=== PATIENT | female | born 1995 ===

== ENCOUNTER 2017-03-06 19:59 | Emergency (ER) | payer OTHER ==
[2017-03-06 20:33] VITALS: TEMP 98.2; O2SAT 100
[2017-03-06 21:46] LABS: BENZODIAZEPINES, UR NEGATIVE (NEGATIVE)
[2017-03-06 21:47] LABS: BARBITURATES, UR NEGATIVE (NEGATIVE)
[2017-03-06 21:50] LABS: OPIATES, UR POSITIVE (NEGATIVE); PHENCYCLIDINE, UR NEGATIVE (NEGATIVE)
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
[2017-03-07] MEDS ORDERED: Sodium Chloride 0.9% 1,000 ML IV ONE (00:33)
[2017-03-07 00:34] VITALS: BP 114/82; PULSE 88; RESP 18
[2017-03-07 00:46] LABS: BASO # 0.1 K/uL (0.0-0.2); BASO % 0.5 % (0.0-2.0); EOS % 0.1 % (0.0-4.0); LYMPH # 1.9 K/uL (1.0-4.3); LYMPH % 15.2 % (20.0-40.0); MEAN CELL VOLUME 78.5 fL (81.0-99.0); MEAN CORPUSCULAR HEMOGLOBIN 25.4 pg (27.0-31.0); MEAN CORPUSCULAR HGB CONC 32.4 g/dL (33.0-37.0); MEAN PLATELET VOLUME 9.8 fL (7.2-11.7); MONO # 0.4 K/uL (0.0-0.8); MONO % 3.2 % (0.0-10.0); RBC 4.32 Mil/uL (3.80-5.20); RED CELL DISTRIBUTION WIDTH 13.8 % (11.5-14.5); WHITE BLOOD COUNT 12.3 K/uL (4.8-10.8)
[2017-03-07 01:18] LABS: BLOOD UREA NITROGEN 9 mg/dL (7-17); GFR AFRICAN-AMERICAN > 60; GFR NON-AFRICAN AMERICAN > 60
[2017-03-07 01:19] LABS: CALCIUM 8.8 mg/dl (8.6-10.4)
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
--- NOTE | 2017-03-07 09:03 | RAD ---
PROCEDURE: Cervical Spine Radiographs. HISTORY: Pain. COMPARISON: None. FINDINGS: BONES: Mild straightening of the normal lordosis is noted. No fracture. Dens Intact. DISC SPACES: Normal. SOFT TISSUES: Normal. No prevertebral soft tissue swelling. OTHER FINDINGS: None. IMPRESSION: Mild straightening of the normal lordosis is noted. No fracture subluxation appreciated
== END 2017-03-07 01:20 | disposition home or self-care (01) ==
LOC: C.ER 19:59
DX: S46.912A Strain of unspecified muscle, fascia and tendon at shoulder and upper arm level, left arm, initial encounter (principal); S76.011A Strain of muscle, fascia and tendon of right hip, initial encounter; S16.1XXA Strain of muscle, fascia and tendon at neck level, initial encounter; V43.62XA Car passenger injured in collision with other type car in traffic accident, initial encounter; Y92.410 Unspecified street and highway as the place of occurrence of the external cause

== ENCOUNTER 2017-06-05 14:55 | Emergency (ER) | payer OTHER ==
[2017-06-05] MEDS ORDERED: Sodium Chloride 0.9% 1,000 ML IV ONE (15:27)
[2017-06-05] MEDS ORDERED: Sodium Chloride 0.9% 1,000 ML ONE (15:35)
--- NOTE | 2017-06-05 15:49 | C.PDOC ---
History Of Present Illness 22 y/o female with Hx of kidney stones presents to ED with complaints of constant flank pain for 2 days and dysuria. Patient reports she had similar symptoms 6 months ago and was diagnosed with kidney stones. Patient denies hematuria, vaginal discharge, fever, vomiting or any other complaints at this time. Time Seen by Provider: 06/05/17 15:14 Chief Complaint (Nursing): Female Genitourinary History Per: Patient History/Exam Limitations: no limitations Onset/Duration Of Symptoms: Days Current Symptoms Are (Timing): Still Present Past Medical History Reviewed: Historical Data, Nursing Documentation, Vital Signs Vital Signs: Last Vital Signs Temp 98.7 F 06/05/17 18:35 Pulse 82 06/05/17 18:35 Resp 18 06/05/17 18:35 BP 116/76 06/05/17 18:35 Pulse Ox 98 06/05/17 18:35 - Medical History PMH: Asthma Surgical History: No Surg Hx Family History: States: No Known Family Hx - Social History Hx Tobacco Use: No Hx Alcohol Use: Yes Hx Substance Use: No - Immunization History Hx Tetanus Toxoid Vaccination: No Hx Influenza Vaccination: No Hx Pneumococcal Vaccination: No Review Of Systems Except As Marked, All Systems Reviewed And Found Negative. Genitourinary: Positive for: Dysuria Musculoskeletal: Positive for: Other (Flank pain) Physical Exam - Physical Exam Appears: Non-toxic, No Acute Distress, Other (Comfortable) Skin: Normal Color, Warm, Dry, No Rash Head: Normacephalic Eye(s): bilateral: Normal Inspection Oral Mucosa: Moist Neck: Normal ROM, Supple Chest: Symmetrical Cardiovascular: Rhythm Regular, No Murmur Respiratory: Normal Breath Sounds, No Rales, No Rhonchi, No Wheezing Gastrointestinal/Abdominal: Soft, No Tenderness, No Guarding, No Rebound, Other (obese abdomen) Back: CVA Tenderness (Left), No Paraspinal Tenderness Extremity: Normal ROM, Capillary Refill (<2 seconds) Neurological/Psych: Oriented x3 ED Course And Treatment - Laboratory Results Result Diagrams: 06/05/17 15:53 06/05/17 15:53 O2 Sat by Pulse Oximetry: 97 (RA) Pulse Ox Interpretation: Normal Progress Note: UA, Blood work, IV fluids, Toradol Disposition Counseled Patient/Family Regarding: Diagnosis, Need For Followup, Rx Given - Disposition Referrals: Delroy Riggins MD [Staff Provider] - [facility] [Outside] Disposition: HOME/ ROUTINE Disposition Time: 18:45 Condition: STABLE Additional Instructions: FOLLOW UP WITH UROLOGY WITHIN 1 WEEK DRINK PLENTY OF FLUIDS, AND USE MEDICATIONS DIRECTED RETURN TO ER IF SYMPTOMS WORSEN Prescriptions: Hydrocodone/Acetaminophen [Hydrocodon-Acetaminophen 5-325] 1 each PO Q6 PRN #15 tablet PRN Reason: Pain, Moderate (4-7) Tamsulosin [Flomax] 0.4 mg PO DAILY #5 cap Instructions: Kidney Stones (ED), Renal Colic (ED) Forms: [employer] ([place]ese) Print Language: TELUGU - Clinical Impression Clinical Impression: Renal colic, bilateral, Kidney stones - Scribe Statement The provider has reviewed the documentation as recorded by the Javidibalfred Stewart All medical record entries made by the Javidibalfred were at my direction and personally dictated by me. I have reviewed the chart and agree that the record accurately reflects my personal performance of the history, physical exam, medical decision making, and the department course for this patient. I have also personally directed, reviewed, and agree with the discharge instructions and disposition.
[2017-06-05 15:54] LABS: RBC URINE 15 /hpf (0-3); URINE BILIRUBIN NEGATIVE (NEGATIVE); URINE BLOOD 2+ (NEGATIVE); URINE COLOR Yellow (YELLOW); URINE GLUCOSE (UA) NORMAL (Normal); URINE KETONE NEGATIVE (NEGATIVE); URINE LEUKOCYTE ESTERASE 1+ Leu/uL (Negative); URINE PROTEIN NEGATIVE (NEGATIVE); URINE UROBILINOGEN NORMAL mg/dL (0.2-1.0); WBC URINE 7 /hpf (0-5)
[2017-06-05 15:57] LABS: BASO % 0.3 % (0.0-2.0); EOS % 0.3 % (0.0-4.0); HEMATOCRIT 36.7 % (34.0-47.0); LYMPH # 2.4 K/uL (1.0-4.3); LYMPH % 20.9 % (20.0-40.0); MEAN CELL VOLUME 79.2 fL (81.0-99.0); MEAN CORPUSCULAR HGB CONC 32.8 g/dL (33.0-37.0); MEAN PLATELET VOLUME 9.3 fL (7.2-11.7); MONO # 0.5 K/uL (0.0-0.8); MONO % 4.7 % (0.0-10.0); RED CELL DISTRIBUTION WIDTH 14.3 % (11.5-14.5); WHITE BLOOD COUNT 11.3 K/uL (4.8-10.8)
[2017-06-05 16:08] LABS: CHLORIDE 101 mmol/L (98-107); POTASSIUM 3.9 mmol/L (3.6-5.2); SODIUM 140 mmol/L (132-148)
[2017-06-05 16:11] LABS: ALB/GLOB RATIO 1.2 (1.0-2.1); ALKALINE PHOSPHATASE 100 U/L (38-126); AST/SGOT 27 U/L (14-36); BILIRUBIN,TOTAL 0.5 mg/dL (0.2-1.3); BLOOD UREA NITROGEN 9 mg/dL (7-17); CALCIUM 9.1 mg/dl (8.6-10.4); CARBON DIOXIDE 23 mmol/L (22-30); GFR AFRICAN-AMERICAN > 60; GLUCOSE,RANDOM 90 mg/dL (65-105); TOTAL PROTEIN 7.8 g/dL (6.3-8.3)
[2017-06-05 16:12] LABS: ALT/SGPT 27 U/L (9-52)
--- NOTE | 2017-06-05 18:34 | CT ---
PROCEDURE: CT Abdomen and Pelvis without intravenous or oral contrast HISTORY: left flank pain r/o kidney stone COMPARISON: None. TECHNIQUE: Technique Contiguous axial images of the abdomen and pelvis without intravenous or oral contrast. Radiation dose: Total exam DLP = 1093.77 mGy-cm. This CT exam was performed using one or more of the following dose reduction techniques: Automated exposure control, adjustment of the mA and/or kV according to patient size, and/or use of iterative reconstruction technique. FINDINGS: LOWER THORAX: Unremarkable. LIVER: Unremarkable. GALLBLADDER AND BILE DUCTS: Unremarkable. PANCREAS: Unremarkable. No ductal dilatation. SPLEEN: Unremarkable. No splenomegaly. ADRENALS: Unremarkable. KIDNEYS AND URETERS: Small. Nonobstructing calculi bilaterally none larger than 2.5 mm. BLADDER: Unremarkable. No calculus. REPRODUCTIVE: Unremarkable. APPENDIX: Unremarkable. Normal appendix. STOMACH AND BOWEL: Unremarkable. No obstruction. No gross mural thickening. PERITONEUM: Unremarkable. No significant fluid collection. No free air. LYMPH NODES: Unremarkable. No enlarged lymph nodes. VASCULATURE: Unremarkable. No aortic aneurysm. BONES: No acute fracture. OTHER FINDINGS: None . IMPRESSION: Nephrolithiasis bilaterally without evidence of obstructive uropathy or other pathologic process.
[2017-06-05 18:36] VITALS: BP 116/76; PULSE 82; RESP 18; TEMP 98.7
[2017-06-05] MEDS ORDERED: Hydrocodone/Acetaminophen 5 mg /300 mg Tab PO STA (18:37)
[2017-06-05 18:40] VITALS: O2SAT 97
[2017-06-05] MEDS ORDERED: Hydrocodone/Acetaminophen 5 mg /300 mg Tab PO ONE (18:41)
== END 2017-06-05 19:07 | disposition home or self-care (01) ==
LOC: C.ER 14:55
DX: N20.0 Calculus of kidney (principal); Z87.442 Personal history of urinary calculi
CPT/HCPCS: 74176; 80053; 81001; 84703; 85025; 96361; 96374; 99285; J1885; J7040

== ENCOUNTER 2017-12-04 02:42 | Emergency (ER) | payer SELFPAY ==
[2017-12-04] MEDS ORDERED: Sodium Chloride 0.9% 500 ML IV ONE (03:12)
[2017-12-04] MEDS ORDERED: Sodium Chloride 0.9% 1,000 ML ONE (03:18)
--- NOTE | 2017-12-04 03:25 | C.PDOC ---
History Of Present Illness 22 y/o female presents to ER with c/o of burning sensation to epigastric area x 1 day with assoc nausea, vomiting x 3. pt took otc zantac with no relief. Pt denies chest pain, SOB, fever, diarrhea or food association Time Seen by Provider: 12/04/17 02:54 Chief Complaint (Nursing): Abdominal Pain History Per: Patient History/Exam Limitations: no limitations Current Symptoms Are (Timing): Still Present Severity: Moderate Pain Scale Rating Of: 8 Location Of Pain/Discomfort: Epigastric Radiation Of Pain To:: None Quality Of Discomfort: Burning, Other (heartburn) Associated Symptoms: denies: Fever, Diarrhea, Loss Of Appetite, Constipation, Urinary Symptoms Alleviating Factors: None Recent travel outside of the [place]: Yes Past Medical History Vital Signs: Last Vital Signs Temp 97.3 F L 12/04/17 02:50 Pulse 85 12/04/17 03:52 Resp 18 12/04/17 03:52 BP 124/71 12/04/17 03:52 Pulse Ox 100 12/04/17 07:40 - Medical History PMH: Asthma, Gastritis Family History: States: Unknown Family Hx - Social History Hx Tobacco Use: No Hx Alcohol Use: No Hx Substance Use: No - Immunization History Hx Tetanus Toxoid Vaccination: No Hx Influenza Vaccination: No Hx Pneumococcal Vaccination: No Review Of Systems Constitutional: Negative for: Fever Cardiovascular: Negative for: Chest Pain, Palpitations, Light Headedness Respiratory: Negative for: Shortness of Breath, Pleuritic Pain Gastrointestinal: Positive for: Nausea, Vomiting, Abdominal Pain (epigastric). Negative for: Diarrhea, Constipation, Melena, Hematochezia Genitourinary: Negative for: Dysuria, Hematuria Neurological: Negative for: Weakness, Numbness Physical Exam - Physical Exam Appears: Well, Non-toxic, No Acute Distress, Other (obese) Skin: Normal Color Eye(s): bilateral: Normal Inspection, PERRL, EOMI Neck: Normal Cardiovascular: Rhythm Regular Respiratory: Normal Breath Sounds, No Wheezing Gastrointestinal/Abdominal: Normal Exam, Bowel Sounds, Soft, Tenderness (mild epigastric ), No Distention, No Guarding Back: Normal Inspection, No CVA Tenderness Neurological/Psych: Oriented x3, Normal Speech, Normal Cognition Gait: Steady ED Course And Treatment - Laboratory Results Result Diagrams: 12/04/17 03:37 12/04/17 03:37 O2 Sat by Pulse Oximetry: 100 Pulse Ox Interpretation: Normal - CT Scan/US Abdomen US Other Rad Studies (CT/US): Read By Radiologist, Radiology Report Reviewed CT/US Interpretation: IMPRESSION: Mildly distended gallbladder with minimal haziness of the pericholecystic fat. Recommend. correlation with laboratory values to exclude acute cholecystitis. Right upper quadrant. ultrasound could be obtained as clinically warranted. Mild nonspecific periportal edema commonly seen with fluid resuscitation. Clinical correlation. recommended. Progress Note: Labs, Pepcid, reglan IV ordered. On reeval pt c/o of persistent epigastric pain, maalox and viscous lidocaine ordered. Pt with recurrent vomiting and pain, IV zofran and Abd/pelvis CT ordered. CT inconclusive, poss acute beto, wbc 15-- pending RUQ US. pt's pain has improved Disposition - Disposition Disposition Time: 07:42 Condition: STABLE Forms: [facility] (Nepali) - Clinical Impression Clinical Impression: Abdominal pain Physician Patient Turnover Patient Signed Over To: Stephy Guerrero
[2017-12-04 03:39] LABS: BASO # 0.1 K/uL (0.0-0.2); BASO % 0.8 % (0.0-2.0); EOS # 0.1 K/uL (0.0-0.7); EOS % 0.6 % (0.0-4.0); HEMOGLOBIN 12.3 g/dL (11.0-16.0); LYMPH # 3.6 K/uL (1.0-4.3); LYMPH % 23.8 % (20.0-40.0); MEAN CELL VOLUME 80.2 fL (81.0-99.0); MEAN CORPUSCULAR HEMOGLOBIN 26.9 pg (27.0-31.0); MEAN CORPUSCULAR HGB CONC 33.6 g/dL (33.0-37.0); MONO % 6.5 % (0.0-10.0); NEUT # 10.4 K/uL (1.8-7.0); NEUT % 68.3 % (50.0-75.0); RBC 4.56 Mil/uL (3.80-5.20); RED CELL DISTRIBUTION WIDTH 14.2 % (11.5-14.5); WHITE BLOOD COUNT 15.2 K/uL (4.8-10.8)
[2017-12-04 03:40] LABS: HCG,QUALITATIVE URINE NEGATIVE (NEGATIVE)
[2017-12-04 03:46] LABS: SQUAMOUS EPITHIAL 6 /hpf (0-5); URINE AMORPHOUS SEDIMENT OCC /ul (<OCC); URINE BILIRUBIN NEGATIVE (NEGATIVE); URINE BLOOD NEGATIVE (NEGATIVE); URINE CLARITY Hazy (Clear); URINE COLOR Yellow (YELLOW); URINE GLUCOSE (UA) NORMAL (Normal); URINE LEUKOCYTE ESTERASE NEG Leu/uL (Negative); URINE PROTEIN NEGATIVE (NEGATIVE); URINE UROBILINOGEN NORMAL mg/dL (0.2-1.0)
[2017-12-04 03:54] LABS: ALBUMIN 3.9 g/dL (3.5-5.0); ALT/SGPT 53 U/L (9-52); AST/SGOT 133 U/L (14-36); BLOOD UREA NITROGEN 12 mg/dL (7-17); CALCIUM 8.5 mg/dl (8.6-10.4); GFR AFRICAN-AMERICAN > 60; GFR NON-AFRICAN AMERICAN > 60; LIPASE 70 U/L (23-300)
[2017-12-04] MEDS ORDERED: Alum-Mag Hydrox-Simethicone Susp (30 mL) PO STA (04:39)
[2017-12-04] MEDS ORDERED: Aluminum Hydroxide/Magnesium Hydroxide Susp (30 mL) PO STA ×2 (04:40→08:31)
[2017-12-04] MEDS ORDERED: Alum-Mag Hydrox-Simethicone Susp (30 mL) ONE (04:45)
[2017-12-04] MEDS ORDERED: Iohexol 350mg/ml 100 ML ONE (05:00)
--- NOTE | 2017-12-04 06:34 | CT ---
EXAM: CT Abdomen and Pelvis With Intravenous Contrast CLINICAL HISTORY: 22 years old, female; Pain; Abdominal pain; Patient HX: 06-05-17 images sent; Additional info: Abd pain , epigastric, periumbilical TECHNIQUE: Axial computed tomography images of the abdomen and pelvis with intravenous contrast. All CT scans at this facility use one or more dose reduction techniques, viz.: automated exposure control; ma/kV adjustment per patient size (including targeted exams where dose is matched to indication; i.e. head); or iterative reconstruction technique. Coronal and sagittal reformatted images were created and reviewed. CONTRAST: 100 mL of [id number] administered intravenously. COMPARISON: CT - ABD PELVIS W/O PO OR IV CONT 2017-06-05 17:51 FINDINGS: Lower thorax: No acute findings. ABDOMEN: Liver: Mild nonspecific periportal edema. No mass. Gallbladder and bile ducts: Mildly distended gallbladder with minimal haziness of the pericholecystic fat. No calcified stones. No ductal dilation. Pancreas: Unremarkable. No mass. No ductal dilation. Spleen: Unremarkable. No splenomegaly. Adrenals: Unremarkable. No mass. Kidneys and ureters: Unremarkable. No solid mass. No hydronephrosis. Stomach and bowel: Unremarkable. No obstruction. No mucosal thickening. Appendix: No findings to suggest acute appendicitis. Normal appendix. PELVIS: Bladder: Unremarkable. No mass. Reproductive: Unremarkable as visualized. ABDOMEN and PELVIS: Intraperitoneal space: Unremarkable. No free air. No significant fluid collection. Bones/joints: No acute fracture. No dislocation. Soft tissues: Unremarkable. Vasculature: Unremarkable. No abdominal aortic aneurysm. Lymph nodes: Unremarkable. No enlarged lymph nodes. IMPRESSION: Mildly distended gallbladder with minimal haziness of the pericholecystic fat. Recommend correlation with laboratory values to exclude acute cholecystitis. Right upper quadrant ultrasound could be obtained as clinically warranted. Mild nonspecific periportal edema commonly seen with fluid resuscitation. Clinical correlation recommended.
--- NOTE | 2017-12-04 07:51 | US ---
Right upper quadrant abdominal ultrasound History: Right upper quadrant abdominal pain. Comparison: CT scan dated 12/04/2017 Technique: Real-time sonography was performed through the right upper quadrant of the abdomen. Findings: Liver: 17.5 centimeters in length. Increased echogenicity of the hepatic parenchymal cortex suggestive for fatty infiltration versus hepatic parenchymal disease. Clinical correlation. Gallbladder: Cholelithiasis. Normal gallbladder wall thickness of 2 millimeters. Negative sonographic Sanders's sign. Common bile duct measures 3 millimeters, within normal limits. Limited visualization of the pancreas. Visualized aorta and IVC are preserved. Right kidney: 11.5 x 3.9 x 4.7 centimeters. No calculi or hydronephrosis. Impression: Cholelithiasis. Prominent liver with diffuse increased echogenicity suggestive for fatty infiltration versus hepatic parenchymal disease. Clinical correlation. Limited visualization of the pancreas.
[2017-12-04] MEDS ORDERED: Aluminum Hydroxide/Magnesium Hydroxide Susp (30 mL) ONE (08:38)
[2017-12-04 08:57] VITALS: BP 102/61; PULSE 75; RESP 20; TEMP 98; O2SAT 98
== END 2017-12-04 08:57 | disposition home or self-care (01) ==
LOC: C.ER 02:42
DX: R10.9 Unspecified abdominal pain (principal); K29.70 Gastritis, unspecified, without bleeding
CPT/HCPCS: 74177; 76705; 80053; 81001; 83690; 84703; 85025; 96374; 96375; 96376; 99285; J1885; J2405; J7040; Q9967